=== PATIENT | female | born 1975 | race Caucasian/White ===

== ENCOUNTER → 2016-08-14 | Outpatient (CLI) | payer OTHER ==
[~2016-08-14] MED LIST: COZAAR 25MG25 MG/TAB PO; EPI-PEN1 MG/ML MR
== END ==
LOC: COL.RAD 12:46
DX: R20.2 Paresthesia of skin (principal); R93.0 Abnormal findings on diagnostic imaging of skull and head, not elsewhere classified
CPT/HCPCS: A9585

== ENCOUNTER → 2019-03-17 | Outpatient (CLI) | payer OTHER | LOC: COL.RAD 11:44 | DX: K82.8 Other specified diseases of gallbladder (principal); R19.7 Diarrhea, unspecified; R63.0 Anorexia; R14.0 Abdominal distension (gaseous); R12 Heartburn | CPT/HCPCS: A9537 ==

== ENCOUNTER → 2019-05-28 | Outpatient (CLI) | payer OTHER | LOC: MC.RAD 11:04 | DX: Z12.31 Encounter for screening mammogram for malignant neoplasm of breast (principal); Z98.82 Breast implant status ==

== ENCOUNTER 2021-02-03 10:06 | Day surgery (SDC) | payer OTHER ==
[~2021-02-03] VITALS: Ht 167.6 cm; Wt 66.3 kg
[2021-02-03 11:20] VITALS: BP 143/91; PULSE 79; TEMP 98.3
[2021-02-03] MEDS ORDERED: ALPHA LIPOIC A200 M2 PO (11:41)
[2021-02-03] MEDS ORDERED: LOTRISONE CREAM15 GM TP (11:42)
[2021-02-03] MEDS ORDERED: NIZORAL SHAMPO120 M1 TP (11:43)
[2021-02-03] MEDS ORDERED: D3-5050000 IU PO (11:44)
[2021-02-03] MEDS ORDERED: VITAMIN A10k PO (11:47)
[2021-02-03] MEDS ORDERED: SYNTHROID0.075 MG/T PO (11:48)
[2021-02-03] MEDS ORDERED: ALDACTONE 25MG25 M1 PO (11:49)
[2021-02-03] MEDS ORDERED: AMITRIPTYLINE H25 M1 PO (11:50)
[2021-02-03] MEDS ORDERED: SOOLANTRA TOP (11:50)
[2021-02-03] MEDS ORDERED: TYLENOL 500MG500 MG PO (11:51)
[2021-02-03 12:40] VITALS: BP 137/85; PULSE 71; TEMP 98.3
[2021-02-03 12:45] VITALS: BP 119/82; PULSE 63
[2021-02-03 13:00] VITALS: BP 130/83; PULSE 71
[2021-02-03 13:15] VITALS: BP 119/82; PULSE 63
--- NOTE | 2021-02-03 13:15 | NUR ---
1240 Pt arrives back from endo procedure via cart. Pt transfers from cart to recliner with RN assist. Monitors on and alarms set. Call light within reach. Report received from HARMAN Moore. Pt alert and oriented. Pt denies pain and nausea. Pt requests water only. 1300 Pt taking food and drink well. 1315 Discharge instructions given to pt. All questions answered to her satisfaction. Handed to her are a thank you card and discharge information. Pt transferred out of hospital via wheelchair and HARMAN Acosta assist, to private vehicle driven by .
== END 2021-02-03 13:15 | disposition home or self-care (01) ==
LOC: SDCO 10:06
DX: I85.00 Esophageal varices without bleeding (principal); K74.60 Unspecified cirrhosis of liver; I10 Essential (primary) hypertension; K21.9 Gastro-esophageal reflux disease without esophagitis; G62.9 Polyneuropathy, unspecified; F32.9 Major depressive disorder, single episode, unspecified; Z20.822 Contact with and (suspected) exposure to COVID-19; Z79.899 Other long term (current) drug therapy
CPT/HCPCS: J2704; J3010; J7120

== ENCOUNTER 2021-03-03 07:36 | Day surgery (SDC) | payer OTHER ==
[~2021-03-03] VITALS: Ht 167.6 cm; Wt 88.0 kg
[~2021-03-03 07:36] MED LIST changes: +ALDACTONE 25MG25 M1 PO; +ALPHA LIPOIC A200 M2 PO; +AMITRIPTYLINE H25 M1 PO; +D3-5050000 IU PO; +LOTRISONE CREAM15 GM TP; +NIZORAL SHAMPO120 M1 TP; +SOOLANTRA TOP; +SYNTHROID0.075 MG/T PO; +TYLENOL 500MG500 MG PO; +VITAMIN A10k PO
[2021-03-03 08:15] VITALS: BP 137/78; PULSE 84; TEMP 97.9
[2021-03-03] MEDS ORDERED: AMITRIPTYLINE H25 M1 PO (08:30)
[2021-03-03] MEDS ORDERED: THERAGRAN TAB1 UDTAB PO (08:31)
[2021-03-03 08:50] VITALS: BP 136/92; PULSE 73; TEMP 98.2
[2021-03-03 09:00] VITALS: BP 137/86; PULSE 69
[2021-03-03 09:15] VITALS: BP 132/80; PULSE 68
== END 2021-03-03 09:40 | disposition home or self-care (01) ==
LOC: SDCO 07:36
DX: K70.31 Alcoholic cirrhosis of liver with ascites (principal); I85.10 Secondary esophageal varices without bleeding; G62.9 Polyneuropathy, unspecified; K70.0 Alcoholic fatty liver; K81.1 Chronic cholecystitis; K21.9 Gastro-esophageal reflux disease without esophagitis; E03.9 Hypothyroidism, unspecified; I10 Essential (primary) hypertension; F41.9 Anxiety disorder, unspecified; F32.9 Major depressive disorder, single episode, unspecified; Z20.822 Contact with and (suspected) exposure to COVID-19; Z79.890 Hormone replacement therapy; Z79.899 Other long term (current) drug therapy; Z87.891 Personal history of nicotine dependence
CPT/HCPCS: J3010; J7030

== ENCOUNTER 2021-04-07 06:25 | Day surgery (SDC) | payer OTHER ==
[~2021-04-07] VITALS: Ht 167.6 cm; Wt 90.5 kg
[~2021-04-07 06:25] MED LIST changes: +THERAGRAN TAB1 UDTAB PO
[2021-04-07 06:57] VITALS: BP 136/77; PULSE 72; TEMP 97.2
--- NOTE | 2021-04-07 07:30 | NUR ---
Patient arrived on cart from Endo suite. Patient ambulated to recliner from cart without difficulty, mild unsteady gait. Vitals obtained. Patient requested ice water and jello. Will continue to monitor. Call gardner is within reach and patient verbalized understanding. Warm blanket given.
[2021-04-07 07:45] VITALS: BP 136/77; PULSE 70; TEMP 97.2
[2021-04-07 08:00] VITALS: BP 110/74; PULSE 70
--- NOTE | 2021-04-07 08:00 | NUR ---
Patient is tolerating ice water and jello. Reports no N/V. Vitals obtained. Will continue to monitor. Call gardner is within reach.
[2021-04-07 08:15] VITALS: BP 122/79; PULSE 68
--- NOTE | 2021-04-07 08:15 | NUR ---
Patient is alert and oriented x3 and expresses desire to be discharged. Criteria has been met. IV discontinued at this time. Catheter intact. Vitals obtained. Patient has call gardner. Discharge instructions reviewed. Patient verbalized understanding and signed related paperwork.
--- NOTE | 2021-04-07 08:40 | NUR ---
Patient escorted out via wheelchair by HARMAN Ugalde. Patient stated no futher questions and said she is excited to go home. Patient has her belongings and discharge information. Patients is driving her home and met us at the main entrence. Patient transferred into his care at this time.
== END 2021-04-07 08:45 | disposition home or self-care (01) ==
LOC: SDCO 06:25
DX: K70.31 Alcoholic cirrhosis of liver with ascites (principal); I85.10 Secondary esophageal varices without bleeding; G62.9 Polyneuropathy, unspecified; I10 Essential (primary) hypertension; F32.9 Major depressive disorder, single episode, unspecified; E03.9 Hypothyroidism, unspecified; F41.9 Anxiety disorder, unspecified; Z20.822 Contact with and (suspected) exposure to COVID-19; Z87.891 Personal history of nicotine dependence; Z79.899 Other long term (current) drug therapy; Z79.890 Hormone replacement therapy
CPT/HCPCS: J2704; J7030

== ENCOUNTER 2021-09-15 05:55 | Day surgery (SDC) | payer OTHER ==
[~2021-09-15] VITALS: Ht 167.6 cm; Wt 92.2 kg
[2021-09-15 06:06] VITALS: BP 127/79; PULSE 72; TEMP 97.2
[2021-09-15] MEDS ORDERED: VITAMIND3 5000 PO (06:15)
[2021-09-15] MEDS ORDERED: BERBERINE PO (06:16)
[2021-09-15] MEDS ORDERED: VITAMIN B COMPL1 SGL PO (06:16)
[2021-09-15 07:27] VITALS: BP 116/63; PULSE 67
[2021-09-15 07:30] VITALS: TEMP 96.9
[2021-09-15 07:31] VITALS: BP 98/69; PULSE 70
[2021-09-15 07:47] VITALS: BP 110/83; PULSE 67
--- NOTE | 2021-09-15 08:03 | NUR ---
MET DISCHARGE CRITERIA. IV REMOVED WITHOUT COMPLICATIONS, CATHETER INTACT. VSS. PT TOLERATING CLEAR LIQUIDS. PT DC TO HOME VIA WHEELCHAIR ACCOMPANIED BY STAFF TO FRONT ENTRANCE.
== END 2021-09-15 08:04 | disposition home or self-care (01) ==
LOC: SDCO 05:55
DX: K70.31 Alcoholic cirrhosis of liver with ascites (principal); I85.10 Secondary esophageal varices without bleeding
CPT/HCPCS: J2704; J7030

== ENCOUNTER 2024-04-03 06:54 | Day surgery (SDC) | payer OTHER ==
[~2024-04-03] VITALS: Ht 167.6 cm; Wt 85.7 kg
[~2024-04-03 06:54] MED LIST changes: +BERBERINE PO; +HUMIRA PEN40 MG/0.4 SQ; +LR 1,000 ML IV SCH; +MILK THISTLE500 M2 PO; +Ondansetron 4 MG/2 ML VIAL IV PRN; +VITAMIN B COMPL1 SGL PO; +VITAMIND3 5000 PO
[2024-04-03 07:15] VITALS: BP 149/99; PULSE 92; TEMP 96.6
--- NOTE | 2024-04-03 07:33 | NUR ---
Patient admitted to [facility]. Admission assessments complete. Consent signed. test waiver signed, pt reports she has an IUD and is not . Allergies, medications, and pharmacy confirmed. left, will come back prior to discharge. 20G IV inserted into right hand, LR infusing without difficulty. Denies complaints. Call light within reach.
[2024-04-03] MEDS ORDERED: Lidocaine PF 2% (20 MG/ML) 5 ML VIAL ONE (07:53)
[2024-04-03 08:15] VITALS: BP 117/80; PULSE 78; TEMP 97.1
[2024-04-03 08:30] VITALS: BP 126/86; PULSE 74
--- NOTE | 2024-04-03 09:00 | NUR ---
0815 RETURNS TO ROOM 3 PER CART. AWAKE, ALERT. RESP UNLABORED. AMBULATES TO RECLINER WITH STANDBY ASSIST. DENIES DISCOMFOR, NAUSEA OR DYSPHAGIA. VITAL SIGNS OBTAINED. CALL LIGHT AT SIDE 0830 TOLERATES PO JUICE AND MUFFIN WITHOUT NAUSEA. SWALLOWS WITHOUT DIFFICULTY. DISCHARGE INSTRUCTIONS REVIEWED. PATIENT VERBALIZES UNDERSTANDING. COPY PROVIDED IN [facility] [address] VOSS 0811 DR CHO HERE TO VISIT WITH PATIENT
== END 2024-04-03 09:00 | disposition home or self-care (01) ==
LOC: SDCO 06:54
DX: K70.30 Alcoholic cirrhosis of liver without ascites (principal); I85.10 Secondary esophageal varices without bleeding; K29.30 Chronic superficial gastritis without bleeding; K44.9 Diaphragmatic hernia without obstruction or gangrene
CPT/HCPCS: J2704; J7120